=== PATIENT | female | born 2000 | race Hispanic/Latino ===

== ENCOUNTER 2024-01-10 18:05 | Emergency (ER) | payer OTHER ==
[~2024-01-10] VITALS: Ht 172.7 cm; Wt 97.6 kg
[2024-01-10] MEDS ORDERED: PRENMIS3 PO (18:31)
[2024-01-10 20:22] LABS: BASO % 0.5 % (0.0-1.0); EOS # 0.1 10^3/uL (0.0-0.5); EOS % 1.6 % (0.0-3.0); HEMATOCRIT 37.3 % (36.0-47.0); HEMOGLOBIN 12.7 g/dl (12.0-15.5); LYMPH # 3.4 10^3/uL (1.5-5.0); LYMPH % 42.2 % (24.0-44.0); MEAN CORPUSCULAR HEMOGLOBIN 29.7 pg (27.0-33.0); MEAN CORPUSCULAR VOLUME 87.4 fl (80.0-96.0); MONO # 0.6 10^3/uL (0.0-0.8); MONO % 7.6 % (2.0-8.0); NEUTROPHILS # 3.9 10^3/uL (1.5-8.5); NEUTROPHILS % 47.9 % (36.0-66.0); PLATELET COUNT, AUTOMATED 342 10^3/uL (150-450); RED BLOOD COUNT 4.27 10^6/uL (4.00-5.40); WHITE BLOOD COUNT 8.2 10^3/uL (4.0-10.0)
[2024-01-10 20:48] LABS: BLOOD UREA NITROGEN 6 MG/DL (9-23); CALCIUM LEVEL 8.6 MG/DL (8.5-10.1); CARBON DIOXIDE LEVEL 24 MMOL/L (20-31); CHLORIDE LEVEL 106 MMOL/L (98-107); CREATININE FOR GFR 0.54 MG/DL (0.55-1.30); GLOMERULAR FILTRATION RATE > 60.0 (>60); GLUCOSE, FASTING 79 MG/DL (60-100); POTASSIUM SERUM 3.8 MMOL/L (3.5-5.1); SODIUM LEVEL 139 MMOL/L (136-145)
[2024-01-10 21:16] LABS: HCG, SERUM QUANTITATIVE 136287.3 MIU/ML (<4.2)
[2024-01-10 21:44] VITALS: BP 99/65; TEMP 98.6; O2SAT 100
[2024-01-11] MEDS: ACETAMINOPHEN TAB 650MG DOSE (2X325MG) PO ONE (01:25)
== END 2024-01-11 01:51 | disposition home or self-care (01) ==
LOC: M ED 18:05
DX: O26.851 Spotting complicating pregnancy, first trimester (principal); Z3A.08 8 weeks gestation of pregnancy; Z79.810 Long term (current) use of selective estrogen receptor modulators (SERMs)

== ENCOUNTER 2024-03-16 02:36 | Emergency (ER) | payer OTHER ==
[~2024-03-16] VITALS: Ht 175.3 cm; Wt 96.7 kg
[~2024-03-16 02:36] MED LIST: PRENMIS3 PO
[2024-03-16 03:20] LABS: BASO % 0.4 % (0.0-1.0); EOS # 0.1 10^3/uL (0.0-0.5); EOS % 1.7 % (0.0-3.0); HEMATOCRIT 33.4 % (36.0-47.0); HEMOGLOBIN 11.7 g/dl (12.0-15.5); LYMPH # 2.7 10^3/uL (1.5-5.0); LYMPH % 37.1 % (24.0-44.0); MEAN CORPUSCULAR HEMOGLOBIN 30.9 pg (27.0-33.0); MEAN CORPUSCULAR VOLUME 88.1 fl (80.0-96.0); MONO # 0.6 10^3/uL (0.0-0.8); MONO % 7.8 % (2.0-8.0); NEUTROPHILS # 3.8 10^3/uL (1.5-8.5); NEUTROPHILS % 52.7 % (36.0-66.0); PLATELET COUNT, AUTOMATED 251 10^3/uL (150-450); RED BLOOD COUNT 3.79 10^6/uL (4.00-5.40); WHITE BLOOD COUNT 7.2 10^3/uL (4.0-10.0)
[2024-03-16 04:00] LABS: BLOOD UREA NITROGEN 9 MG/DL (9-23); CALCIUM LEVEL 8.2 MG/DL (8.5-10.1); CARBON DIOXIDE LEVEL 25 MMOL/L (20-31); CHLORIDE LEVEL 107 MMOL/L (98-107); CREATININE FOR GFR 0.61 MG/DL (0.55-1.30); GLOMERULAR FILTRATION RATE > 60.0 (>60); GLUCOSE, FASTING 86 MG/DL (60-100); POTASSIUM SERUM 3.8 MMOL/L (3.5-5.1); SODIUM LEVEL 139 MMOL/L (136-145)
[2024-03-16 04:17] LABS: HCG, SERUM QUANTITATIVE 11371.5 MIU/ML (<4.2)
[2024-03-16] MEDS ORDERED: LIDO5DIS41 TOP (10:03)
[2024-03-16 10:17] VITALS: BP 114/64; TEMP 97.3; O2SAT 99
[2024-03-16 10:32] LABS: GC DNA AMPLIFICATION NEGATIVE (NEGATIVE)
== END 2024-03-16 10:19 | disposition home or self-care (01) ==
LOC: M ED 02:36
DX: O26.892 Other specified pregnancy related conditions, second trimester (principal); M54.50 Low back pain, unspecified; R10.31 Right lower quadrant pain; R10.32 Left lower quadrant pain; Z3A.17 17 weeks gestation of pregnancy

== ENCOUNTER 2024-05-26 15:40 | Emergency (ER) | payer OTHER ==
[~2024-05-26] VITALS: Ht 175.3 cm; Wt 92.2 kg
[~2024-05-26 15:40] MED LIST changes: +LIDO5DIS41 TOP
[2024-05-26 17:40] LABS: BASO % 0.1 % (0.0-1.0); EOS # 0.1 10^3/uL (0.0-0.5); EOS % 1.5 % (0.0-3.0); HEMATOCRIT 31.7 % (36.0-47.0); HEMOGLOBIN 10.9 g/dl (12.0-15.5); LYMPH % 29.9 % (24.0-44.0); MEAN CORPUSCULAR HEMOGLOBIN 30.8 pg (27.0-33.0); MEAN CORPUSCULAR HGB CONC 34.4 g/dl (32.0-36.5); MEAN CORPUSCULAR VOLUME 89.5 fl (80.0-96.0); MONO # 0.5 10^3/uL (0.0-0.8); MONO % 7.5 % (2.0-8.0); NEUTROPHILS # 4.1 10^3/uL (1.5-8.5); NEUTROPHILS % 60.7 % (36.0-66.0); PLATELET COUNT, AUTOMATED 276 10^3/uL (150-450); RED BLOOD COUNT 3.54 10^6/uL (4.00-5.40); WHITE BLOOD COUNT 6.7 10^3/uL (4.0-10.0)
[2024-05-26 18:07] LABS: THYROID STIMULATING HORMONE 0.735 uIU/ML (0.55-4.78)
[2024-05-26 18:12] LABS: BLOOD UREA NITROGEN < 5 MG/DL (9-23); CALCIUM LEVEL 8.1 MG/DL (8.5-10.1); CARBON DIOXIDE LEVEL 24 MMOL/L (20-31); CHLORIDE LEVEL 110 MMOL/L (98-107); CREATININE FOR GFR 0.42 MG/DL (0.55-1.30); GLOMERULAR FILTRATION RATE > 60.0 (>60); GLUCOSE, FASTING 84 MG/DL (60-100); SODIUM LEVEL 140 MMOL/L (136-145)
[2024-05-26 18:36] LABS: MAGNESIUM LEVEL 1.9 MG/DL (1.8-2.4)
[2024-05-26] MEDS: NS 1,000 ML IV ONE (19:15)
[2024-05-26 19:46] LABS: RSV AMPLIFICATION NEGATIVE (NEGATIVE)
[2024-05-26 22:01] VITALS: BP 116/58; O2SAT 100
[2024-05-26] MEDS ORDERED: HOLTER MONITOR XX (22:27)
[2024-05-26] MEDS ORDERED: EEG XX (22:27)
[2024-05-26 22:33] VITALS: TEMP 97.6
== END 2024-05-26 22:46 | disposition home or self-care (01) ==
LOC: M ED 15:40
DX: O99.012 Anemia complicating pregnancy, second trimester (principal); O99.891 Other specified diseases and conditions complicating pregnancy; R55 Syncope and collapse; Z3A.27 27 weeks gestation of pregnancy

== ENCOUNTER → 2024-05-30 | Outpatient (CLI) | payer OTHER ==
[~2024-05-30] MED LIST changes: +EEG XX; +HOLTER MONITOR XX
== END ==
LOC: M EKG 09:36
PROVIDERS: ATTEND Physician Assistant Medical
DX: R00.2 Palpitations (principal)

== ENCOUNTER → 2024-06-13 | Outpatient (CLI) | payer OTHER | LOC: M SLEEP 09:14 | PROVIDERS: ATTEND Physician Assistant Medical | DX: R55 Syncope and collapse (principal) ==

== ENCOUNTER 2024-07-06 16:01 | Outpatient (CLI) | payer OTHER ==
[~2024-07-06] VITALS: Ht 175.3 cm; Wt 93.4 kg
[2024-07-06 16:26] VITALS: BP 110/59
[2024-07-06] MEDS ORDERED: ACET-907 PO (16:28)
[2024-07-06 16:29] VITALS: O2SAT 98
[2024-07-06] MEDS ORDERED: UNIS25TA3 PO (16:29)
[2024-07-06] MEDS ORDERED: HOME MED LIST COMPLETE! XX SCH (16:35)
[2024-07-06 18:04] VITALS: BP 117/64; O2SAT 99
== END 2024-07-06 18:15 | disposition home or self-care (01) ==
LOC: M LDO 16:01
PROVIDERS: ATTEND Obstetrics & Gynecology
DX: O47.03 False labor before 37 completed weeks of gestation, third trimester (principal); Z3A.33 33 weeks gestation of pregnancy
CPT/HCPCS: 59025; G0463

== ENCOUNTER 2024-07-13 11:47 | Outpatient (CLI) | payer OTHER ==
[~2024-07-13] VITALS: Ht 175.3 cm; Wt 92.9 kg
[~2024-07-13 11:47] MED LIST changes: +ACET-907 PO; +UNIS25TA3 PO
[2024-07-13 12:13] VITALS: BP 120/69
[2024-07-13] MEDS ORDERED: HOME MED LIST COMPLETE! XX SCH (12:20)
[2024-07-13 14:26] VITALS: BP 119/61
== END 2024-07-13 14:53 | disposition home or self-care (01) ==
LOC: M LDO 11:47
PROVIDERS: ATTEND Obstetrics & Gynecology
DX: O47.03 False labor before 37 completed weeks of gestation, third trimester (principal); Z3A.34 34 weeks gestation of pregnancy
CPT/HCPCS: 59025; 81001; G0463

== ENCOUNTER 2024-07-16 20:14 | Outpatient (CLI) | payer OTHER ==
[~2024-07-16] VITALS: Ht 175.3 cm; Wt 94.3 kg
[2024-07-16 20:32] VITALS: BP 116/62
== END 2024-07-16 20:48 | disposition home or self-care (01) ==
LOC: M LDO 20:14
PROVIDERS: ATTEND Obstetrics & Gynecology
DX: O26.893 Other specified pregnancy related conditions, third trimester (principal); R10.2 Pelvic and perineal pain; O47.03 False labor before 37 completed weeks of gestation, third trimester; Z3A.35 35 weeks gestation of pregnancy
CPT/HCPCS: 59025; G0463

== ENCOUNTER 2024-08-09 12:49 | Outpatient (CLI) | payer OTHER ==
[~2024-08-09] VITALS: Ht 175.3 cm; Wt 94.1 kg
[2024-08-09 13:04] VITALS: BP 117/69; O2SAT 99
[2024-08-09] MEDS ORDERED: ACET-840 PO (13:35)
== END 2024-08-09 14:27 | disposition home or self-care (01) ==
LOC: M LDO 12:49
PROVIDERS: ATTEND Advanced Practice Midwife
DX: O26.893 Other specified pregnancy related conditions, third trimester (principal); N89.8 Other specified noninflammatory disorders of vagina; Z3A.38 38 weeks gestation of pregnancy
CPT/HCPCS: 59025; 76815; G0463

== ENCOUNTER 2024-11-16 00:52 | Emergency (ER) | payer OTHER ==
[~2024-11-16] VITALS: Ht 175.3 cm; Wt 81.1 kg
[~2024-11-16 00:52] MED LIST changes: +ACET-840 PO
[2024-11-16 01:34] LABS: BASO % 0.5 % (0.0-1.0); EOS # 0.2 10^3/uL (0.0-0.5); EOS % 2.3 % (0.0-3.0); HEMATOCRIT 37.6 % (36.0-47.0); HEMOGLOBIN 12.5 g/dl (12.0-15.5); LYMPH # 3.7 10^3/uL (1.5-5.0); LYMPH % 48.7 % (24.0-44.0); MEAN CORPUSCULAR HEMOGLOBIN 29.3 pg (27.0-33.0); MEAN CORPUSCULAR HGB CONC 33.2 g/dl (32.0-36.5); MEAN CORPUSCULAR VOLUME 88.3 fl (80.0-96.0); MONO # 0.5 10^3/uL (0.0-0.8); MONO % 7.1 % (2.0-8.0); NEUTROPHILS # 3.1 10^3/uL (1.5-8.5); NEUTROPHILS % 41.3 % (36.0-66.0); PLATELET COUNT, AUTOMATED 332 10^3/uL (150-450); RED BLOOD COUNT 4.26 10^6/uL (4.00-5.40); WHITE BLOOD COUNT 7.5 10^3/uL (4.0-10.0)
[2024-11-16 01:58] LABS: LIPASE 42 U/L (12-53)
[2024-11-16 02:00] LABS: ALBUMIN 3.7 G/DL (3.2-5.2); ALKALINE PHOSPHATASE 36 U/L (35-104); ALT/SGPT 23 U/L (7.0-40); AST/SGOT 16 U/L (<34); BILIRUBIN,DIRECT 0.1 MG/DL (<0.4); BILIRUBIN,TOTAL 0.5 MG/DL (0.3-1.2); BLOOD UREA NITROGEN 15 MG/DL (9-23); CALCIUM LEVEL 8.5 MG/DL (8.5-10.1); CARBON DIOXIDE LEVEL 27 MMOL/L (20-31); CHLORIDE LEVEL 105 MMOL/L (98-107); CK-MB VALUE MASS < 1.0 NG/ML (<3.6); CREATININE FOR GFR 0.69 MG/DL (0.55-1.30); GLOMERULAR FILTRATION RATE > 60.0 (>60); GLUCOSE, FASTING 98 MG/DL (60-100); POTASSIUM SERUM 3.8 MMOL/L (3.5-5.1); SODIUM LEVEL 142 MMOL/L (136-145); TOTAL PROTEIN 6.8 G/DL (5.7-8.2)
[2024-11-16 02:02] LABS: CPK CREATINE PHOSPHOKINASE 52 U/L (34-145); MB/CK RELATIVE INDEX 1.92 (< OR =4)
[2024-11-16 06:43] LABS: MAGNESIUM LEVEL 1.9 MG/DL (1.8-2.4)
[2024-11-16 06:47] LABS: FREE T4 1.23 NG/DL (0.89-1.76); THYROID STIMULATING HORMONE 2.972 uIU/ML (0.55-4.78)
[2024-11-16 07:26] VITALS: BP 121/69; TEMP 97.5; O2SAT 98
== END 2024-11-16 07:30 | disposition home or self-care (01) ==
LOC: EDBD 00:52 → M ED 00:52
DX: R00.0 Tachycardia, unspecified (principal); R00.2 Palpitations; D64.9 Anemia, unspecified; F41.9 Anxiety disorder, unspecified

== ENCOUNTER → 2025-05-27 | Outpatient (CLI) | payer OTHER ==
[~2025-05-27] MED LIST changes: +LIDO1ADH93 TOP; -LIDO5DIS41 TOP
== END ==
LOC: M PLAIMG 08:11
PROVIDERS: ATTEND Physician Assistant Medical
DX: H61.891 Other specified disorders of right external ear (principal)